=== PATIENT | male | born 1955 | race Caucasian/White ===

== ENCOUNTER → 2024-04-29 08:16 | Outpatient (REF) | payer BC, SELFPAY | LOC: DHCBC/DCA 08:16 | PROVIDERS: ATTENDING PHYSICIAN Internal Medicine Cardiovascular Disease; FAMILY PHYSICIAN Family Medicine | DX: R55 Syncope and collapse (principal) | CPT/HCPCS: 78452; 93017; A9500 ==

== ENCOUNTER → 2024-05-04 15:59 | Outpatient (REF) | payer BC, SELFPAY | LOC: HWRCS 15:59 | PROVIDERS: ATTENDING PHYSICIAN Internal Medicine Cardiovascular Disease; FAMILY PHYSICIAN Family Medicine | DX: R55 Syncope and collapse (principal) | CPT/HCPCS: 93306 ==

== ENCOUNTER 2024-11-11 09:13 | Inpatient (IN) | payer BC, MEDICARE, SELFPAY ==
[2024-11-09] VITALS (8 sets, daily range): BP systolic 160–182; BP diastolic 90–113; BMI 25.6; BMI 25.2
[2024-11-09 14:23] LABS: % Basophils 0.8 % (0-2); % Eosinophils 0.5 % (0-6); % Immature Granulocytes 0.7 % (0-0.5); % Lymphocytes 17.9 % (20.5-51.1); % Monocytes 9.2 % (1.7-9.3); % Neutrophils 70.9 % (42.2-75.2); Absolute Basophils 0.1 10^3/uL (0-0.2); Absolute Immature Granulocytes 0.1 10^3/uL (0-0.05); Absolute Lymphocytes 1.6 10^3/uL (1.2-3.4); Absolute Monocytes 0.8 10^3/uL (0.1-0.6); Absolute Neutrophils 6.2 10^3/uL (1.4-6.5); Hematocrit 41.8 % (39.0-52.0); Hemoglobin 15.5 g/dL (13.0-18.0); Mean Corp Hgb Conc. 37.1 g/dL (33.0-37.0); Mean Corpuscular Hgb 33.5 pg (27.0-31.0); Mean Corpuscular Volume 90.5 fL (80.0-94.0); Mean Platelet Volume 9.9 fL (7.4-10.4); Nucleated Red Blood Cells % 0 % (-); Platelet Count 185 10^3/uL (130-400); Red Blood Cell Count 4.62 10^6/uL (4.70-6.10); Red Cell Dist. Width 11.8 % (11.5-14.5); White Blood Cell Count 8.8 10^3/uL (4.8-10.8)
[2024-11-09 14:35] LABS: ALT (SGPT) 96 U/L (0-50); AST (SGOT) 40 U/L (17-59); Albumin 4.5 g/dl (3.5-5.0); Alkaline Phosphatase 79 U/L (38-126); Blood Urea Nitrogen 20 mg/dl (9-20); Calcium 9.3 mg/dl (8.4-10.2); Carbon Dioxide 23 mmol/L (22-30); Chloride 107 mmol/L (98-107); Glucose 123 mg/dl (70-99); Potassium 4.1 mmol/L (3.5-5.1); Sodium 138 mmol/L (135-145); Total Bilirubin 0.9 mg/dl (0.2-1.3); Total Protein 7.6 g/dl (6.3-8.2); eGFR > 60.00
--- NOTE | 2024-11-09 16:19 | ED.GENMED ---
History of Present Illness
General
Chief Complaint: Cardiac Symptoms
Source: patient
Exam Limitations: none
Time Seen by Provider: 11/09/24 16:09
Nursing documentation reviewed up to this point in time: agreed with
History of Present Illness
History of Present Illness:
The patient is a 69-year-old male with a history of hypertension who presents to the emergency department with shortness of breath upon exertion for the past week. The patient reports that the shortness of breath has been accompanied by a mild
sensation of chest tightness. Patient denies any severe back pain, numbness/tingling in extremities, or weakness. He denies any pain or swelling in his lower extremities. Patient denies any fever, chills, or cough.
He noticed his pulse fluctuating between the mid-40s and 70s at home, prompting a visit to his security auditor.
While at the security auditor�an electrocardiogram revealed a AV 2:1 block heart block, and ultimately it was recommended that he have a pacemaker placed.
The patient does note that he had a syncopal event back in May 2024 while he was on the stairmaster at the gym. He then had a full cardiac workup and a nuclear stress test.
Review of Systems
Review of Systems
Allergies reviewed?: Yes
All Other Systems: ROS reviewed and negative except as documented in HPI and ROS
Phy Exam
Physical Exam
Physical Exam:
Vitals: Hypertensive. Otherwise vital signs stable. Heart rate 69.
General: Patient is well appearing, no acute distress
Skin: Warm and dry, no rashes or lesions
Head: Normocephalic, atraumatic
Eyes: Sclera nonicteric.
Throat: Protecting airway
Neck: Normal ROM, no cervical spine tenderness, no meningismus
Cardiac: Regular rate and rhythm, no murmurs. 2+ palpable radial pulses bilaterally
Pulm: Normal respiratory effort, no wheezes, rales, rhonchi heard on exam
.
Abdomen: No abdominal tenderness.
Extremities: No evidence of cyanosis or edema. 2+ palpable DP pulses bilaterally. Negative Homans' sign
Neuro: AAOx3. Grossly intact.
Psychiatric: Normal affect.
Course
Orders/Labs/Results
Orders:
Orders
11/09/24 Breakfast
Cholesterol Lowering
At Your Request: Full Participation
Does patient need a safe tray?: No
Cholesterol Lowering: Sodium, 2 Gram
11/09/24 13:55
ECG [Electrocardiogram (*1)] Urgent
Reason for Study: Abnormal EKG
Other Reason for Exam: Syncope
EKG- Treatment ONCE
11/09/24 14:12
Complete Blood Count/With Diff Urgent
Comprehensive Metabolic Panel Urgent
11/09/24 16:19
CR Chest - 2 Views Urgent
Comment:
Reason For Exam: Exertional SOB/chest tightness
11/09/24 16:57
NT-proBNP Urgent
Troponin I Urgent
11/09/24 19:19
Admit/Transfer Patient As Directed
Co-Sign Provider:
Level of Care: Observation services
Assign to:: Telemetry
Physician / Group: Celestino
Diagnosis: symptomatic bradycardia
Reason for Telemetry: 2nd & Complete AV Block
Date to Stop Telemetry: 11/12/24
Time to Stop Telemetry: 11:00
PRN Pain Medication Management As Directed
May give lesser potent ordered pain med per pt: Yes
preference::
Protocol:: Medication orders for pain may be administered in a
manner that supports deferring to patient preference
when the pt is:
- Requesting an ordered lesser potent pain medication.
Least to most potent pain medications are defined
as: acetaminophen < NSAID < tramadol < opioids
(morphine, oxycodone, hydromorphone).
- Requesting a lesser dose of the same medication IF
ORDERED.
- Requesting a less intrusive route of administration
if both routes are prescribed by the provider (PO <
IV).
11/09/24 19:20
Code Status As Directed
Resuscitation Status: Full Code
11/09/24 20:50
Acetaminophen [Tylenol] 650 mg PO Q6HPRN PRN
Valsartan [Diovan] 160 mg PO BID
11/09/24 20:50
Echo 2D MMode Color/Doppler Routine
Reason for Study: heart failure
CARDIOLOGY CONSULT Routine
Consulting Provider: Parvez Phillip
Was physician already notified: Yes
HF DIETARY CONSULT Routine
HF EDUCATOR CONSULT Routine
Comment:
Activity As Directed
Activity Level: With Assistance
Intake/ Output As Directed
Frequency: Per unit guidelines
Patient Education As Directed
Type: CHF folder
Comment: give on admission. Document in Interdisciplinary Education record
Sleep Apnea Assessment by RN As Directed
Comment:
Physician Instructions:
Vital Signs As Directed
Frequency: Other
Additional Instructions:: Q12 or per unit guidelines if more frequent.
Weight As Directed
Frequency: Daily
Type of Scale: Standing Scale
Comment: Daily morning weight. If unable to stand, use balanced bed scale.
Weight As Directed
Frequency: Once
Type of Scale: Standing Scale
Comment: Upon Admission. If unable to stand, use balanced bed scale.
Pulse Ox/cont/shift [RESP] Routine
Quantity: 1
Special Instructions: Daily pulse oximetry at rest. If greater than 92% at rest also obtain pulse oximetry
while ambulating as tolerated.
DX Deep Vein Thrombosis Video Routine
11/10/24 06:00
Basic Metabolic Panel IN AM
Cardiovascular Evaluation IN AM
Magnesium IN AM
TSH Reflex To Free T4 IN AM
11/10/24 08:00
Escitalopram Oxalate [Lexapro] 10 mg PO DAILY
11/10/24 18:00
Enoxaparin Sodium [Lovenox] 40 mg SC QPM
11/11/24 06:00
Basic Metabolic Panel IN AM
11/12/24 06:00
Basic Metabolic Panel IN AM
11/12/24 11:00
DC Protocol for Telemetry ONCE
Abnormal Lab Results
11/09/24
14:12
RBC 4.62 L 10^6/uL
(4.70-6.10)
MCH 33.5 H pg
(27.0-31.0)
MCHC 37.1 H g/dL
(33.0-37.0)
Abs Immat Gran (auto) 0.1 H 10^3/uL
(0-0.05)
Absolute Monos (auto) 0.8 H 10^3/uL
(0.1-0.6)
Immature Gran % 0.7 H %
(0-0.5)
Lymphocytes % 17.9 L %
(20.5-51.1)
Glucose 123 H mg/dl
(70-99)
ALT 96 H U/L
(0-50)
11/09/24 14:12
11/09/24 14:12
Vital Signs
Initial and Last Documented VS:
Initial Vital Signs
Temp Pulse Resp BP Pulse Ox
98.0 F 69 16 178/90 98
11/09/24 14:04 11/09/24 14:04 11/09/24 14:04 11/09/24 14:04 11/09/24 14:04
Last Documented Vital Signs
Temp Pulse Resp BP Pulse Ox
97.8 F 64 18 174/97 98
11/09/24 23:43 11/09/24 23:43 11/09/24 23:43 11/09/24 23:43 11/09/24 23:43
MDM/Problems Addressed
Differential Diagnosis Includes:
Not limited to: Cardiac arrhythmia including heart block, congestive heart failure, acute coronary syndrome, pulmonary embolism, anemia, etc.
MDM/Problems Addressed:
69-year-old male with history as documented presenting with one week of exertional dyspnea and mild chest tightness. he has noticed fluctuating pulse rate at home ranging from 40s � 70s. Sent by cardiology after low pulse rate and findings of 2:1 AV
block on EKG from office. Patient asymptomatic upon arrival to ED. Vitals stable, heart rate in 60s with EKG that shows first-degree heart block labs without acute ischemic changes.
In light of presenting symptoms � will obtain troponin, pro BNP, chest x-ray to r/o other cardiac process.
Update: Troponin undetectable. Pro-bnp of 318. CXR without acute findings. Patient remains asymptomatic and well appearing with heart rate in 60s since arrival to ED. However � given bradycardia and EKG obtained in cardiology office � concern would
be for potential AV kaye dysfunction, which may be intermittent. Discussed with cardiology, doctor Phillip. Will admit patient for cardiology evaluation in the morning and possible pacemaker placement. Patient accepted to hospitalist service in
stable condition.
Chronic conditions affecting care:
Hypertension
Acute Exacerbation and/or Progression of Chronic Illness:
Acutely hypertensive
*Radiology
Radiology exam reviewed: preliminary read by ED provider (Chest x-ray reviewed by me-no acute abnormalities) and radiology read reviewed
*Pulse Oximetry
Patient hypoxic: no
*EKG
Interpreted by ED Provider?: Yes
EKG Intrepretation Date: 11/09/24
Interpretation: abnormal
Comparison EKG: changes noted
Heart Rate: 67
Rate: normal
Rhythm: sinus
Interval: first degree heart block
QRS Pattern: right bundle branch block
Ischemia: non-specific ST changes
*Repairer Wood Furniture Interpretation
Rate: normal
Interpretation: normal
Heart Rate: 68
Rhythm: sinus
*Critical Care Note
Total Time (30-74mins, 75-104mins- exclusive of procedures): Not Applicable
Patient Management
Discussion with other providers: Hospitalist and Morphologist (Case discussed with cardiology)
Escalation/DeEscalation of care consider admission/obs:
Admit for cards consult, possible pacemaker placement tomorrow
ED Attending Note
-
Portions of this chart may have been created with voice recognition software.� Occasional wrong word or��sound alike� substitutions may have occurred due to the inherent limitations of voice recognition software.
Discharge Plan
Departure
Patient Disposition: Admit
Date of Disposition: 11/09/24
Time of Disposition: 19:03
Presentation/result/management discussed w/ accepting MD/DO: Hospitalist
Discharge Problem:
Exertional dyspnea, Intermittent bradycardia
Interventions
Interventions:
*Risk Screen - Suicide Last Done: 11/09/24 21:38
*General Assessment Last Done: 11/09/24 16:55
*Neglect/Abuse Screening Last Done: 11/09/24 14:04
*ED- Fall Risk Assessment Last Done: 11/09/24 16:55
*ED COVID-19 Vaccine History Last Done: 11/09/24 21:38
*Nursing Disposition Last Done: 11/09/24 20:52
ED- Pulmonary Assessment Last Done: 11/09/24 16:55
ED- Cardiac Assessment Last Done: 11/09/24 16:55
Discharge Date and Time
Discharge Date/Time: 11/09/24 20:53
[2024-11-09 17:35] LABS: NT-proBNP 318 pg/ml; Troponin I < 0.012 ng/ml
--- NOTE | 2024-11-09 19:13 | HPS.HSE ---
Family Physician
-
Family Physician: Pema Chairez
Chief Complaint
-
Exertional dyspnea
History of Present Illness
This is is a 69-year-old with past medical history significant for hypertension who presents to the emergency department after being seen in cardiology office today and found to have bradycardia to 41 with 2-1 AV block on EKG.
Patient reports approximately 1 week of exertional dyspnea and some chest tightness.
Patient reported that he had a fall possibly presyncopal episode about 6 months ago while working out in the gym. At that time he was seen by cardiology and had an extensive testing before returning to work. He had a nuclear stress test which was
negative for ischemia. He had an echocardiogram which was also normal. Patient reported that he had 1 week of Holter monitoring which showed no acute events. He was told that he had 1/4 degree AV block at that time and to monitor it.
About 1 week ago he started noticing some dyspnea on exertion especially when he is walking up a flight of stairs. He then noticed that when he checked his pulse ox his heart rate was as low as 40. Reports that when he is resting he had no
symptoms but when he tries to exert himself he doesdyspnea on exertion. He denies feeling lightheaded or dizzy. He denies having any palpitations. He has been without syncopal episodes.
He denies any recent travels outside of the country. He denies any known sick contact. He denies any rash.
However in the emergency department he was hypertensive to 178/90 pulse was 63 he was satting 98% on room air. ECG shows 4 degree AV block at a rate of 67 with right bundle branch block. He was asymptomatic. Chest x-ray shows no acute infiltrates.
Troponin was negative at 0.012 x 2. BNP was low to equivocal at 318.
CBC was completely unremarkable. Electrolytes BUN/creatinine were all in the normal range.
Medical History
Past Medical History
Past Medical History: Reports HTN and Psychiatric
Past Surgical History: Reports Other (Hernia repair)
Social History
Tobacco: Non-smoker
Alcohol: Occasional
Drug: None
Personal:
Living: With Family
Employment: Employed
Family History
Family History: Not pertinent
Allergies / Home Medications
Allergies reflects when Allergies were last updated in [facility].
Home Medications with original date entered in [facility]
Allergy/Medication List:
Allergies
Allergy/AdvReac Type Severity Reaction Status Date / Time
No Known Allergies Allergy Verified 11/09/24 14:06
Home Medications
escitalopram oxalate 10 mg tablet 10 mg PO DAILY 11/09/24
valsartan 160 mg tablet 160 mg PO BID 11/09/24
Review of Systems
-
Constitutional: Reports No Symptoms
EENT: Reports No Symptoms
Respiratory: Reports Trouble Breathing
Cardiac: Reports No Symptoms
Abdomen/GI: Reports No Symptoms
: Reports No Symptoms
Musculoskeletal: Reports No Symptoms
Skin: Reports No Symptoms
Neurological: Reports No Symptoms
Endocrine: Reports No Symptoms
Hematologic/Lymphatic: Reports No Symptoms
Psych: Reports No Symptoms
Physical Exam
Vital Signs
Vital Signs
Temp Pulse Resp BP Pulse Ox
98.0 F 63 18 178/90 98
11/09/24 14:04 11/09/24 17:30 11/09/24 17:45 11/09/24 17:29 11/09/24 17:45
Physical Exam
General: Well Developed, Well Nourished and No Apparent Distress
HEENT: NormoCephalic, Moist mucous membranes and Atraumatic
Respiratory: Clear
Cardiac: S1/S2 and Regular Rhythm; No Murmur or Rub
GI: Soft, Non Tender, Non Distended and Normal Bowel Sounds; No Organomegaly
Rectal: Deferred by Provider
Musculoskeletal: No Clubbing, No Cyanosis and No Edema
Skin: No Rash
Neuro: Nonfocal/grossly intact
Laboratory Results
-
11/09/24 14:12
11/09/24 14:12
Laboratory Results
Total Bilirubin 0.9 mg/dl (0.2-1.3) 11/09/24 14:12
AST 40 U/L (17-59) 11/09/24 14:12
ALT 96 U/L (0-50) H 11/09/24 14:12
Alkaline Phosphatase 79 U/L (38-126) 11/09/24 14:12
Troponin I < 0.012 ng/ml 11/09/24 16:57
Data Reviewed
-
Diagnostic Radiology: Image Personally Visualized and interpreted
Medical Tests (Nuc Med, Echo, EKG etc): Image Personally Visualized and interpreted
Lab Data: Labs Reviewed by me
Old Records: Reviewed
Impression/Plan
-
IMPRESSION:
69 y.o male with h/o HTN presenting to ED with 1 week of exertional dyspnea. Found to have bradycardia to 41, intermittent 2:1 av block at cardiology clinic. Trop negative. BNP WNL. ECG here shows sinus rhythm at 61, 1st deg AVB with RBBB.
Prior ECG 2019 was normal. Prior Echo was normal
PLAN:
1. Symptomatic bradycardia - Progressive kaye/his purkinje dysfunction possibly progressing to more severe heart block.
- admit to telemetry
- HD stable and NSR for now, no kaye agents
- check TSH, ESR
- echo
- NPO after midnight for possible PPM in am
- cardiology consultation
DVT PPX - lovenox sq
Code status - Full Code
--- NOTE | 2024-11-09 19:20 | EDRN ---
Report received, introduced myself to patient and family an re-checked vital signs, patient is working on his computer currently with no complaints, Dr. Lopez in to work on the admission
[2024-11-09] MEDS: DIOVAN 160 MG PO (21:13)
--- NOTE | 2024-11-09 22:29 | PTCARENOTE ---
Received patient from ED @ 2049. Patient AOx3, pt able to ambulate from stretcher to bed. tele pack applied. Pt's HR dropping into 30 and 40's. patient asymptomatic. RIBBON BLOCKER notified, EKG done, showing AV block. EKG on admission different; NSR with BBB
and 1st degree HB. Patients BP currently 160/100's. RIBBON BLOCKER to contact cardiology to see if he should be transferred to IVU.
Per cardiology, if not hypotensive, no changes. Plan for pacemaker in AM. Patient aware of plan. Will continue to monitor.
--- NOTE | 2024-11-09 22:31 | W.PN.UPDATE ---
Update Note
Progress Note Update
Notified by RN that patient's HR in 30's sustained, BP 160/113. EKG completed, TT to exceptional needs teacher Cardiology, Dr. Phillip, forwarded EKG. Plan for patient to receive pacemaker tomorrow, continue to monitor overnight, may stay on 4E unless patient
becomes hypotensive, then transfer to IVU.
[2024-11-10] VITALS (11 sets, daily range): BP systolic 119–175; BP diastolic 64–83; BMI 25.1
[2024-11-10 07:32] LABS: Blood Urea Nitrogen 20 mg/dl (9-20); Calcium 8.9 mg/dl (8.4-10.2); Carbon Dioxide 22 mmol/L (22-30); Chloride 110 mmol/L (98-107); Estimated Creatinine Clearance 76 ml/min; Glucose 95 mg/dl (70-99); HDL Cholesterol 49 mg/dl; LDL Cholesterol, Calculated 118 mg/dl; Magnesium 2.2 mg/dl (1.6-2.3); Potassium 4.3 mmol/L (3.5-5.1); Sodium 140 mmol/L (135-145); Total Cholesterol 180 mg/dl (50-199); Triglyceride 67 mg/dl (10-149); Very Low Density Lipoprotein 13 mg/dl (0-30); eGFR > 60.00
--- NOTE | 2024-11-10 07:43 | CON.CAR ---
Addendum entered and electronically signed by Nehemias Kaur MD 11/10/24 12:28:
I saw and examined the patient.
The Avionics System Engineer's note was reviewed and I agree with the note.
Comment: Briefly, 69-year-old man with past medical history of bifascicular block who was evaluated in the outpatient office yesterday and found to be in sinus rhythm with 2-1 AV block. Patient reports that for approximately 1 week he has
experienced dyspnea on exertion and occasional lightheadedness with change in position. During this time he identified that his heart rate was largely around 40 bpm.
He was not reporting symptoms to me this morning at the time my evaluation
Telemetry reviewed with sinus rhythm and 2-1 AV block with heart rate in the 30s
Transthoracic echocardiogram is largely unchanged from prior showing normal LV function, septal hypertrophy and moderate mitral regurgitation
We will arrange for dual-chamber pacemaker implant for treatment of symptomatic bradycardia
Original Note:
Consultation
Consultation Request
Date/Time Consultation Performed: 11/10/24
Requesting Provider: Dr. Tirado
Performing Provider: Katie Kennedy PA-C for Dr. Kaur
Reason for Consultation: humberto
Medical History
-
Chief Complaint: bradycardia
History of Present Illness:
Patient is a 69 yo M with past medical history of syncope 04/2024 with workup including negative head CT, nuclear stress test, echocardiogram, and scanning supervisor all without significant etiology for syncope. He has hypertension as well as known
bifascicular block with right bundle branch block, left anterior fascicular block, and family history of CAD. As of approximately a week ago, he began to note shortness of breath with exertion, as well as a change in his heart rate to be lower in
the 30s to 40s and some lightheadedness with positional change. He was seen in the office on 11/09/2024 and by EKG was in 2-1 AV block and referred to ER for admission and pacemaker placement. He denies known thyroid issues. Denies history of
rashes, or concern for exposure to ticks/Lyme disease. He is not on blood thinners.
PMH:
Syncope 04/2024
Bifascicular block (RBBB and LAFB)
HTN
Anxiety
Past Medical History
Past Medical History: Other (in HPI)
Social History
Tobacco: Non-Smoker
Alcohol: Occasional
Personal:
Living: With Family
Employment: Employed
Family History
Family History: CAD, Hypertension and Other (CHF)
Allergies / Home Medications
Allergy/AdvReac Type Severity Reaction Status Date / Time
No Known Allergies Allergy Verified 11/09/24 14:06
�Medication �Instructions �Recorded �Confirmed �Type
escitalopram oxalate 10 mg tablet 10 mg PO DAILY Mental 11/09/24 11/09/24 History
Health/Anxiety
valsartan 160 mg tablet 160 mg PO BID Blood Pressure 11/09/24 11/09/24 History
Review of Systems
-
History Source: Patient
All other systems: Negative unless noted
Physical Exam
Vital Signs
Temp Pulse Resp BP Pulse Ox
97.7 F 45 16 153/74 98
11/10/24 03:56 11/10/24 03:56 11/10/24 03:56 11/10/24 03:56 11/10/24 03:56
Lab Results
11/09/24 14:12
11/10/24 05:47
Troponin I < 0.012 ng/ml 11/09/24 16:57
Ixx-R-Zsuplygcbxn Pept 318 pg/ml 11/09/24 16:57
Physical Exam
General: No Apparent Distress and Comfortable
HEENT: Normocephalic, Anicteric and Moist Mucous Membranes
Respiratory: Clear and Non Labored Respirations
Cardiac: S1/S2, Regular Rhythm and Other (bradycardic)
GI: Soft, Non Tender, Non Distended and Normal Bowel Sounds
Musculoskeletal: No Clubbing, No Cyanosis and No Edema
Skin: Warm and Dry
Neuro: AO x 3
Impression / Plan
-
Primary Cage Fighter: Dr. Tobin
Assessment:
Presentation with bradycardia, 2:1 AV block in cardiology office 11/09/24
Bifascicular block (RBBB and LAFB)
History of syncope 04/2024
HTN
Anxiety
Exercise nuclear stress test 04/29/2024: Normal stress test with small mild fixed inferior apical defect consistent with bowel attenuation, no ischemia noted, EF 71%
Echo 05/04/2024: EF 65 to 70%, moderate asymmetric subaortic septal hypertrophy, mildly dilated RV, mild MR with chordal CARRIE, PAP 15 to 20 mmHg
Plan:
- Patient referred to ER by cardiology office after was noted to be in 2-1 AV block by EKG 11/09/2024. He has history of right bundle branch block and left anterior fascicular block as well as prior syncopal episode 04/2024 of unknown etiology.
- He is not on blood thinners or AV kaye blockers as an outpatient
- TSH pending. No history of thyroid disease
- Denies significant risk for Lyme disease. No recent rashes
- Chest x-ray 11/09/2024 without evidence of active cardiopulmonary disease
- Last echo from 05/2024 as above. Repeat today
- Stress test from 04/2024 as above. Troponin negative
- No evidence of acute CHF by examination. proBNP 318
- He is n.p.o. for possible pacemaker placement today. Will discuss timing with EP
- Procedure reviewed with patient 11/10. Also reviewed postprocedure activity restrictions/limitations
- Discussed with nursing
Data Reviewed
-
EKG: Tracing Personally Visualized and interpreted
Radiology: Report Reviewed by me
Medical Tests (Nuc Med, Echo etc): Report Reviewed by me
Labs: Labs Reviewed by me
Old Records: Reviewed
[2024-11-10 08:00] LABS: TSH Reflex To Free T4 1.13 uIU/ml (0.47-4.68)
--- NOTE | 2024-11-10 08:02 | W.PN.HOSP.TC ---
Today's Communication/Plan
-
;/
Assessment / Plan
Assessment / Plan
Assessment/plan
#Symptomatic bradycardia
#History of RBBB
#History of left anterior fascicular block
-EKG on presentation- SINUS RHYTHM WITH 2ND DEGREE A-V BLOCK WITH 2:1 A-V CONDUCTION
-no kaye agents
-TSH normal, troponin neg
-Cardiology consulted, input appreciated
-Echocardiogram 11/10- Left ventricular ejection fraction is 60-65%. Normal regional wall motion.
-for Pacemaker today
-Continue to monitor vital signs
#Essential hypertension
-Continue valsartan
-Add amlodipine 2.5mg
#Anxiety
-Continue escitalopram
CODE STATUS full code
DVT prophylaxis Lovenox
Anticipated Discharge: 24 - 48 hours
Subjective/Interval History
-
Patient seen examined at bedside. Denies acute complaint of chest pain, shortness of breath, palpitations.
Objective Data
-
Labs:
Laboratory Results
11/10/24
05:47
Sodium 140
Potassium 4.3
Chloride 110 H
Carbon Dioxide 22
BUN 20
Creatinine 1.0
Glucose 95
Calcium 8.9
Vital Signs:
Vital Signs
Temp Pulse Resp BP Pulse Ox
97.7 F 45 16 153/74 98
11/10/24 03:56 11/10/24 03:56 11/10/24 03:56 11/10/24 03:56 11/10/24 03:56
I&O
11/09/24 11/10/24 11/11/24
06:59 06:59 06:59
Output Total 400 / 400
Balance -400 / -400
Review of Systems
-
All other systems: Reviewed and negative (Except as documented)
Physical Exam
-
General: Well Developed and No Apparent Distress
HEENT: Normocephalic
Respiratory: Clear to Auscultation and Non Labored Respirations
Cardiac: Regular Rhythm, S1/S2 and Bradycardic
GI: Soft, Nontender, Nondistended and Normal Bowel Sounds
Musculoskeletal: No Clubbing, No Cyanosis and No Edema
Skin: Warm and Dry
Neuro: Awake, Alert, Oriented and AO x 3
Psych: Calm
[2024-11-10] MEDS: LEXAPRO 10 MG PO (09:08)
[2024-11-10] MEDS: DIOVAN 160 MG PO ×2 (09:08→19:47)
[2024-11-10 10:36] LABS: Hepatitis C Antibody Negative (Negative)
[2024-11-10] MEDS: NORVASC 2.5 MG PO (12:06)
--- NOTE | 2024-11-10 16:02 | CM ---
Alert awake oriented patient who lives with his Leeann in a 2 story home with 3 step to enter and 12 steps to bed and bathroom. He is independent in driving and in all activities of daily living.He was offered VN he declined need.His will
drive him home. Rosa letter given explained and signed on chart.
No VN hx / No SNF history
Pharmacy [facility] [address]
PCP DR Chairez
PLAN Home Declined VN
--- NOTE | 2024-11-10 17:22 | ITS.CL.PACE ---
[employer] - Pacemaker Implant
Pacemaker Implant
Procedure Report:
Date of Procedure: November 10, 2024
Patient : 1955
Procedure: Pacemaker Implantation.
Indication: Paroxysmal AV block
Implants:
Pulse Generator: Medtronic; Model# W1 DR 01; SN: [id number] [ ] H.
RA Lead: Medtronic; Model# 4574; SN: [id number]
RV Lead: Medtronic; Model# 4074; SN: [id number]
Technique: A time out was performed. The procedure site was identified. The patient was anesthetized by the anesthesia service. Preoperative sedation was administered. The patient was prepped and draped in the usual fashion. Local anesthetic was
applied to the left prepectoral subcutaneous tissue. A 3 inch incision was made 2.5 inches below the left clavicle. A subcutaneous pocket was created with blunt and sharp dissection and hemostasis controlled with Bovie cautery. The left axillary
vein was accessed within the pocket without difficulty. Hemostasis was excellent. The leads were introduced with 7 Fr hemostatic peel away introducer sheaths. The ventricular lead was placed at the right ventricular apex. The atrial lead was placed
in the right atrial appendage. 10 volt pacing did not capture the diaphragm. The leads were secured to the pectoralis muscle and fascia. The leads were appropriately attached to the device. The pocket was irrigated with antibiotic solution. The
device and leads were placed in the pocket. The incision was closed in three layers with absorbable suture. The estimated blood loss was minimal. There were no complications.��
Lead Analysis:
RA lead: P: 2.4 mV; Threshold: 0.75 V @ 0.5��ms; Impedance: 1159 ohms.
RV lead: R: 3.5 mV; Threshold: 0.5 V @ 0.5��ms; Impedance: 836 ohms.
Final Programming: DDDR 6130
�
Conclusion: Uncomplicated Medtronic pacemaker implant.
Recommendation: Routine post pacemaker care.
[2024-11-10] MEDS: LOVENOX 40 MG SC (17:49)
--- NOTE | 2024-11-10 18:08 | PTCARENOTE ---
Received patient from [employer] s/p pacemaker. AAOx3. Ordered bedrest for 1 hr. LUE with immobilizer. Telemetry reading AV paced. Family at bedside. Will continue to monitor.
[2024-11-10] MEDS: ANCEF 5 IV (22:37)
[2024-11-11 03:32] VITALS: BP 124/62
[2024-11-11 06:00] VITALS: BMI 25.0
[2024-11-11] MEDS: ANCEF 5 IV (06:13)
--- NOTE | 2024-11-11 07:22 | W.PN.HOSP.TC ---
Today's Communication/Plan
-
repeat CXR today
Assessment / Plan
Assessment / Plan
Assessment/plan
#Symptomatic bradycardia
#History of RBBB
#History of left anterior fascicular block
-EKG on presentation- SINUS RHYTHM WITH 2ND DEGREE A-V BLOCK WITH 2:1 A-V CONDUCTION
-no kaye agents
-TSH normal, troponin neg
-Cardiology consulted, input appreciated
-Medtronic pacemaker placement yesterday 11/10/2024
-Echo 11/10/2024: EF 60 to 65%, mild concentric LVH with asymmetric septal hypertrophy, mildly dilated RV size, moderate MR
#Essential hypertension
-Continue valsartan
-Added amlodipine 2.5mg this admission
#Anxiety
-Continue escitalopram
CODE STATUS full code
DVT prophylaxis Lovenox
Anticipated Discharge: Today
Subjective/Interval History
-
Patient seen and examined at bedside. Without acute complaints.
Objective Data
-
Labs:
Laboratory Results
11/11/24
07:14
WBC Pending
Hgb Pending
Hct Pending
Plt Count Pending
Sodium Pending
Potassium Pending
Chloride Pending
Carbon Dioxide Pending
BUN Pending
Creatinine Pending
Glucose Pending
Calcium Pending
Vital Signs:
Vital Signs
Temp Pulse Resp BP Pulse Ox
98.2 F 61 16 124/62 94
11/11/24 03:32 11/11/24 03:32 11/11/24 03:32 11/11/24 03:32 11/11/24 03:32
I&O
11/10/24 11/11/24 11/12/24
06:59 06:59 06:59
Intake Total 1440 / 1440
Output Total 400 / 400 200 / 200
Balance -400 / -400 1240 / 1240
Review of Systems
-
All other systems: Reviewed and negative (Except as documented)
Physical Exam
-
General: Well Developed and No Apparent Distress
HEENT: Normocephalic
Respiratory: Clear to Auscultation and Non Labored Respirations
Cardiac: Regular Rhythm and S1/S2
GI: Soft, Nontender, Nondistended and Normal Bowel Sounds
Musculoskeletal: No Clubbing, No Cyanosis and No Edema
Skin: Warm and Dry
Neuro: Awake, Alert, Oriented and AO x 3
Psych: Calm
[2024-11-11 07:30] LABS: Hematocrit 43.8 % (39.0-52.0); Hemoglobin 16.1 g/dL (13.0-18.0); Mean Corp Hgb Conc. 36.8 g/dL (33.0-37.0); Mean Corpuscular Hgb 33.9 pg (27.0-31.0); Mean Corpuscular Volume 92.2 fL (80.0-94.0); Mean Platelet Volume 9.7 fL (7.4-10.4); Platelet Count 187 10^3/uL (130-400); Red Blood Cell Count 4.75 10^6/uL (4.70-6.10); Red Cell Dist. Width 11.9 % (11.5-14.5); White Blood Cell Count 13.1 10^3/uL (4.8-10.8)
[2024-11-11] MEDS: NORVASC 2.5 MG PO (07:36)
[2024-11-11] MEDS: DIOVAN 160 MG PO (07:36)
[2024-11-11] MEDS: LEXAPRO 10 MG PO (07:36)
[2024-11-11 07:51] VITALS: BP 131/75
[2024-11-11 08:17] LABS: Blood Urea Nitrogen 19 mg/dl (9-20); Calcium 9.3 mg/dl (8.4-10.2); Carbon Dioxide 22 mmol/L (22-30); Chloride 105 mmol/L (98-107); Estimated Creatinine Clearance 76 ml/min; Glucose 111 mg/dl (70-99); Potassium 4.5 mmol/L (3.5-5.1); Sodium 136 mmol/L (135-145); eGFR > 60.00
--- NOTE | 2024-11-11 09:14 | W.PN.CARDCBS ---
Addendum entered and electronically signed by Jacobo Lozada DO 11/11/24 11:50:
I saw and examined the patient.
The Zipper Machine Operator's note was reviewed and I agree with the note.
Comment:
Patient seen and examined. Patient reporting he feels well. Patient has not chest pain, shortness, palpitations, weakness. Patient with mild discomfort at device site. No other complaints this time
GEN: No distress, awake, alert, oriented x3. LUE immobilizer in place
HEENT: supple, anicteric, mmm, EOMI
LUNGS: CTA bilaterally, no wheezes/rales
CV: Reg, S1/S2, no murmur
ABD: soft, BS+, NT/ND
EXT: No cyanosis, clubbing, edema
NEURO: Gross non-focal
SKIN: Warm, pink, dry. No rash. Left chest with dressing clean dry and intact
Telemetry demonstrates a paced V pace; single episode overnight occurring with a paced V paced followed by failure to capture with return of a paced V pace
Chest x-ray stable lead position no pneumothorax; repeat pending
EKG shows a paced V pace
Device interrogation by Medtronic had shown increased atrial threshold but stable sensing, impedance values; this was adjusted by Medtronic
Patient doing well status post pacemaker
As mentioned chest x-ray pending
Discussed routine care with patient regarding post procedure
Further recommendations to follow
Original Note:
Today's Communication / Plan
-
doing well s/p PPM
repeat CXR now
activity restrictions reviewed
plan for DC today
OP cardiac follow up arranged
Impression / Plan
-
Primary Orderly: Dr. Tobin
Assessment:
Presentation with bradycardia, 2:1 AV block in cardiology office 11/09/24
Bifascicular block (RBBB and LAFB)
History of syncope 04/2024
HTN
Anxiety
Exercise nuclear stress test 04/29/2024: Normal stress test with small mild fixed inferior apical defect consistent with bowel attenuation, no ischemia noted, EF 71%
Echo 05/04/2024: EF 65 to 70%, moderate asymmetric subaortic septal hypertrophy, mildly dilated RV, mild MR with chordal CARRIE, PAP 15 to 20 mmHg
Echo 11/10/2024: EF 60 to 65%, mild concentric LVH with asymmetric septal hypertrophy, mildly dilated RV size, moderate MR
Plan:
- Presented in 2-1 AV block with history of right bundle branch block and left anterior fascicular block
- Underwent Medtronic pacemaker placement 11/10/2024
- currently in apaced rhythm on review of tele. device interrogation with increased atrial threshold.
- CXR 11/10 without PTX and stable lead position. will repeat this AM for reassessment
- Doing well today with minimal pain
- echo with results as above
- TSH WNL
- reviewed activity restrictions/limitations
- OP wound check appt arranged
- likely ok for DC from cardiac standpoint
- d/w hospitalist via TT. d/w patient and at bedside
Progress Note - Orderly
Subjective
Date of Service: November 11, 2024
Reports with minimal pain. Feeling well
Objective
Labs:
11/11/24 07:14
11/11/24 07:14
Labs
Hgb 16.1 g/dL (13.0-18.0) 11/11/24 07:14
Hct 43.8 % (39.0-52.0) 11/11/24 07:14
Plt Count 187 10^3/uL (130-400) 11/11/24 07:14
Sodium 136 mmol/L (135-145) 11/11/24 07:14
Potassium 4.5 mmol/L (3.5-5.1) 11/11/24 07:14
BUN 19 mg/dl (9-20) 11/11/24 07:14
Creatinine 1.0 mg/dL (0.7-1.3) 11/11/24 07:14
Glucose 111 mg/dl (70-99) H 11/11/24 07:14
Troponins
11/09/24
16:57
Troponin I < 0.012
Vital Signs and I&O:
Vital Signs
Temp Pulse Resp BP Pulse Ox
97.5 F 61 18 131/75 97
11/11/24 07:51 11/11/24 07:51 11/11/24 07:51 11/11/24 07:51 11/11/24 07:51
Vital Signs
Temp Pulse Resp BP Pulse Ox
97.5 F 61 18 131/75 97
11/11/24 07:51 11/11/24 07:51 11/11/24 07:51 11/11/24 07:51 11/11/24 07:51
Intake & Output
11/09/24 11/10/24 11/11/24 11/12/24
07:59 07:59 07:59 07:59
Intake Total 1440 / 1440 320 / 320
Output Total 400 / 400 200 / 200
Balance -400 / -400 1240 / 1240 320 / 320
Physical Exam
Physical Exam
GEN: No distress, awake, alert, oriented x3. LUE immobilizer in place
HEENT: supple, anicteric, mmm, EOMI
LUNGS: CTA bilaterally, no wheezes/rales
CV: Reg, S1/S2, no murmur
ABD: soft, BS+, NT/ND
EXT: No cyanosis, clubbing, edema
NEURO: Gross non-focal
SKIN: Warm, pink, dry. No rash. Left chest with dressing clean dry and intact
[2024-11-11 11:53] VITALS: BP 145/74
--- NOTE | 2024-11-11 14:21 | W.DCSUMMARY ---
Documented by User: Noreen Rodriguez MD, Resident 11/11/24 14:49
Discharge Summary
Discharge Data
Date of Admission: 11/11/24
Date of Discharge: 11/11/24
-
Pending Results: No
Hospital Course
Brief Hospital course; This is is a 69-year-old with past medical history significant for hypertension who presented to the emergency department 11/09 after being seen in cardiology office and found to have bradycardia to 41 with 2-1 AV block on EKG.
in addition, patient admitted to dyspnea on exertion especially when he walks up a flight of stairs. Upon presentation to the ED, he was hypertensive to 178/90 pulse was 63 he was satting 98% on room air. ECG shows 2nd degree AV block at a rate of
67 with right bundle branch block. He was asymptomatic. Chest x-ray shows no acute infiltrates. Troponin was negative at 0.012. BNP at 318. CBC was completely unremarkable. Electrolytes BUN/creatinine were all in the normal range. Cardiology
was consulted. Echocardiogram was ordered Normal left ventricular chamber size. Normal left ventricular systolic function. Left ventricular ejection fraction is 60-65% by volumetric assessment. Normal regional wall motion. He was scheduled for
pacemaker placement. Patient Underwent Medtronic pacemaker placement 11/10/2024. Patient was stable postprocedure for discharge. He underwent a device interrogation prior to discharge.
On presentation, patient's blood pressure was elevated. Prior to this admission he was on valsartan 160 mg p.o. twice daily. For optimal blood pressure control, he was started on amlodipine 2.5 mg daily. Blood pressure stable until discharge. He
will be continued on amlodipine to follow-up with his PCP and cardiology for titration of med
Discharge Plan
-
Patient Disposition: Home (Routine Discharge)
Discharge Diagnosis/Procedures: 2:1 av block, Pacemaker implant
Condition: Good
Driving Restrictions: No driving for 1 week
Stand Alone Forms: [facility] - Implanted Device
Referrals:
[facility] [Provider Group] - 11/18/24 9:00 am
Referral Note: Post device incision check appointment
Pema Chairez DO [Family Provider, [facility]] - in four to six weeks
Prescriptions:
New
amlodipine 2.5 mg Tablet
2.5 mg PO DAILY Qty: 30 0RF
Continued
valsartan 160 mg tablet
160 mg PO BID
escitalopram oxalate 10 mg tablet
10 mg PO DAILY
Discharge Orders:
Discharge Patient (As Directed); Ordered 11/11/24
Ordered By: Noreen Rodriguez
Discharge Date and Time
Print Language: ESTONIAN

Documented by User: Rommel Daimond DO 11/11/24 15:54
Discharge Summary
Discharge Data
Date of Admission: 11/11/24
Date of Discharge: 11/11/24
Total time spent discharging patient (in min): 31
Discharge Plan
-
Patient Disposition: Home (Routine Discharge)
Discharge Diagnosis/Procedures: 2:1 av block, Pacemaker implant
Condition: Good
Driving Restrictions: No driving for 1 week
Stand Alone Forms: [facility] - Implanted Device
[facility] - 11/18/24 9:00 am
Referral Note: Post device incision check appointment
Pema Chairez DO [Family Provider, [facility]] - in four to six weeks
Prescriptions:
New
amlodipine 2.5 mg Tablet
2.5 mg PO DAILY Qty: 30 0RF
Continued
valsartan 160 mg tablet
160 mg PO BID
escitalopram oxalate 10 mg tablet
10 mg PO DAILY
Discharge Orders:
Discharge Patient (As Directed); Ordered 11/11/24
Ordered By: Noreen Rodriguez
Discharge Date and Time
Print Language: ESTONIAN
[2024-11-11 14:34] VITALS: BP 153/80
--- NOTE | 2024-11-11 16:10 | CM ---
MD entered order for discharge .
Pt changed to Inpatient IMM given reviewed and signed on chart.
Offered Vn he declined need.
Leeann will drive him home
PLAN Home no needs
== END 2024-11-11 16:02 | disposition home or self-care (01) | DRG 244 ==
LOC: 4 EAST ACU 09:13
PROVIDERS: Emergency Medicine; Internal Medicine Cardiovascular Disease; Physician Assistant; Student in an Organized Health Care Education/Training Program; ADMITTING PHYSICIAN Internal Medicine; ATTENDING PHYSICIAN Internal Medicine; EMERGENCY PHYSICIAN Emergency Medicine; FAMILY PHYSICIAN Family Medicine; OTHER PHYSICIAN Internal Medicine Cardiovascular Disease
PROC: 02H63JZ Insertion of Pacemaker Lead into Right Atrium, Percutaneous Approach (ICD-10-PCS; 2024-11-10)
PROC: 02HK3JZ Insertion of Pacemaker Lead into Right Ventricle, Percutaneous Approach (ICD-10-PCS; 2024-11-10)
PROC: 0JH606Z Insertion of Pacemaker, Dual Chamber into Chest Subcutaneous Tissue and Fascia, Open Approach (ICD-10-PCS; 2024-11-10)
DX: I44.2 Atrioventricular block, complete (principal); I45.2 Bifascicular block; R06.02 Shortness of breath; I11.0 Hypertensive heart disease with heart failure; I50.9 Heart failure, unspecified; F41.9 Anxiety disorder, unspecified; Z82.49 Family history of ischemic heart disease and other diseases of the circulatory system
CPT/HCPCS: 33208; 71045; 71046; 80048; 80053; 80061; 83735; 83880; 84443; 84484; 85025; 85027; 86803; 93005; 93306; 99285; C1785; C1892; C1898; Q9967